=== PATIENT | male | born 1970 | race Caucasian/White ===

== ENCOUNTER 2024-06-04 16:55 | Emergency (ER) | payer OTHER ==
[~2024-06-04] VITALS: Ht 175.3 cm; Wt 73.0 kg
[2024-06-04 16:58] VITALS: BP 101/52; PULSE 61; RESP 16; TEMP 36.9; O2SAT 96
== END 2024-06-04 18:24 | disposition home or self-care (01) ==
LOC: ER 16:55
DX: G40.909 Epilepsy, unspecified, not intractable, without status epilepticus (principal); F11.10 Opioid abuse, uncomplicated; Z86.73 Personal history of transient ischemic attack (TIA), and cerebral infarction without residual deficits
CPT/HCPCS: 99283